=== PATIENT | male | born 1990 | race Caucasian/White ===

== ENCOUNTER 2017-06-14 14:36 | Emergency (ER) | payer OTHER ==
[~2017-06-14] VITALS: Ht 175.3 cm; Wt 83.0 kg
--- NOTE | 2017-06-14 14:45 | NUR ---
PATIENT TO ED DT SNAKE BITE ON RIGHT HAND X 2 DAYS. DENIES PAIN AT THIS TIME, NO SIGNS OF INFECTION NOTED. VSS
--- NOTE | 2017-06-14 14:53 | NUR ---
MD RIVERA AT BEDSIDE
[2017-06-14 15:39] VITALS: BP 118/60
--- NOTE | 2017-06-14 15:40 | NUR ---
Patient discharged to home in stable condition. Written and verbal after care instructions given. Patient verbalizes understanding of instruction.
== END 2017-06-14 15:40 | disposition home or self-care (01) ==
LOC: ER 14:39
DX: S61.451A Open bite of right hand, initial encounter (principal); W59.11XA Bitten by nonvenomous snake, initial encounter; Y93.89 Activity, other specified; Y92.89 Other specified places as the place of occurrence of the external cause; Y99.8 Other external cause status
CPT/HCPCS: 73130; 99284; A4606; Z7610